=== PATIENT | male | born 1995 | race Two or more races ===

== ENCOUNTER 2020-11-29 15:26 | Emergency (ER) | payer MEDICAID, OTHER ==
[~2020-11-29] VITALS: Ht 167.6 cm; Wt 73.0 kg
--- NOTE | 2020-11-29 15:45 | NUR ---
Called NO response
[2020-11-29 16:19] VITALS: BP 155/85
--- NOTE | 2020-11-29 16:58 | NUR ---
seen and examined by umang escobar
--- NOTE | 2020-11-29 17:05 | NUR ---
Walking boot applied by automobile service writer.
--- NOTE | 2020-11-29 17:12 | NUR ---
Patient discharged to home in stable condition. Written and verbal after care instructions given. Patient verbalizes understanding of instruction.
== END 2020-11-29 17:20 | disposition home or self-care (01) ==
LOC: ER 15:29
DX: M25.571 Pain in right ankle and joints of right foot (principal); W10.8XXA Fall (on) (from) other stairs and steps, initial encounter; Y93.01 Activity, walking, marching and hiking; Y92.098 Other place in other non-institutional residence as the place of occurrence of the external cause; Y99.8 Other external cause status
CPT/HCPCS: 73650-TC